=== PATIENT | female | born 1970 | race Caucasian/White ===

== ENCOUNTER → 2018-01-03 | Outpatient (CLI) | payer BC ==
--- NOTE | 2018-01-04 11:28 | RADIOLOGY IMAGING REPORT ---
FACILITY: [facility] - [place] PATIENT NAME: PATTI TO : [id number] MR: [id number] V: [id number] EXAM DATE: [id number] ORDERING PHYSICIAN: MONIKA ECHEVARRIA TECHNOLOGIST: Eneida Herndon PROCEDURE:BILATERAL DIGITAL SCREENING MAMMOGRAM WITH CAD ASSISTED INTERPRETATION & 3D TOMOSYNTHESIS COMPARISON:None. This is the patient's baseline mammogram. INDICATIONS:SCREENING FINDINGS: Moderately dense fibroglandular tissue is seen throughout the breasts. In the upper outer quadrant of the Left breast there is a nodular area for which Left breast Ultrasound is recommended. Just inferior to midline in the central Left breast on the Left MLO view there is an additional focal nodule not well seen on the Left CC view. Spot compression view of this nodule recommended. DIAGNOSTIC CATEGORY 0--INCOMPLETE: NEED ADDITIONAL IMAGING EVALUATION. RECOMMENDATIONS: ADDITIONAL MAMMOGRAPHIC VIEWS REQUIRED: LEFT BREAST. ULTRASOUND: LEFT BREAST. IMPRESSION: BIRADS 0: Incomplete. Left breast Ultrasound and additional view of the Left breast recommended as described. Dictated by: Nhi Elliott M.D. on 01/04/2018 at 9:12 Transcribed by: JUSTINO on 01/04/2018 at 9:51 Approved by: Nhi Elliott M.D. on 01/04/2018 at 11:26 [facility]
== END ==
LOC: US 00:36
PROVIDERS: ATTEND Nurse Practitioner Family
DX: Z12.31 Encounter for screening mammogram for malignant neoplasm of breast (principal); R92.8 Other abnormal and inconclusive findings on diagnostic imaging of breast
CPT/HCPCS: 77063; 77067

== ENCOUNTER → 2018-01-22 | Outpatient (CLI) | payer BC ==
--- NOTE | 2018-01-22 15:34 | RADIOLOGY IMAGING REPORT ---
FACILITY: [facility] PATIENT NAME: PATTI TO : [id number] MR: [id number] V: [id number] EXAM DATE: ORDERING PHYSICIAN: MONIKA ECHEVARRIA TECHNOLOGIST: Eneida Herndon PROCEDURE:LEFT DIGITAL DIAGNOSTIC MAMMOGRAM COMPARISON:None. INDICATIONS:FURTHER EVAL FINDINGS: Dictated on Ultrasound report for 01/22/2018. DIAGNOSTIC CATEGORY 4--SUSPICIOUS FOR MALIGNANCY. RECOMMENDATIONS: ULTRASOUND-GUIDED CORE BIOPSY: LEFT BREAST. IMPRESSION: BIRADS 4: Suspicious for malignancy. Dictated by: Devang Gillis M.D. on 01/22/2018 at 12:12 Transcribed by: JUSTINO on 01/22/2018 at 14:25 Approved by: Devang Gillis M.D. on 01/22/2018 at 15:32 [facility]
--- NOTE | 2018-01-22 15:39 | RADIOLOGY IMAGING REPORT ---
FACILITY: [facility] PATIENT NAME: PATTI TO : [id number] MR: [id number] V: [id number] EXAM DATE: ORDERING PHYSICIAN: MONIKA ECHEVARRIA TECHNOLOGIST: Mireille Salinas RDMS PROCEDURE:US LEFT BREAST and Left Diagnostic Mammogram COMPARISON:None. INDICATIONS:FURTHER EVAL TECHNIQUE: LEFT XCCL SPOT COMPRESSION 3D, LEFT FULL ML 3D, LEFT CC SPOT COMPRESSION 3D, LEFT SPOT COMPRESSION MLO 3D MAMMOGRAMS WERE PREFORMED. FINDINGS: Diagnostic Left Mammogram: The breast tissue is heterogeneously dense. In the Left breast 1 o'clock position 10cm from the nipple, there is persistent 7mm nodule which may represent a lymph node and is immediately adjacent to a vessel. Alfonso 6mm nodule in the Left breast 4 o'clock position, 4cm from the nipple is also noted. Left Breast Ultrasound: Left breast Ultrasound was preformed from the 12-6 o'clock position. In the Left breast 4 o'clock position, 7cm from the nipple, there is a 6 x 5 x 4mm irregular hypoechoic mass concerning for malignancy and warrants Ultrasound guided core biopsy. Immediately inferior and medial is a 7 x 5 x 9mm lobulated lymph node with a slightly thickened cortex but a normal fatty hilum. In the 1 o'clock position, 8cm from the nipple, there is a lobulated hypoechoic nodule measuring 10 x 8 x 4mm which corresponds to the mammographic finding and is potentially a metastatic lymph node and warrants Ultrasound guided core biopsy. In the Left breast 4 o'clock position, 1cm from the nipple there is a 5 x 3 x 7mm lymph node with normal fatty hilum. DIAGNOSTIC CATEGORY 4--SUSPICIOUS FOR MALIGNANCY. RECOMMENDATIONS: ULTRASOUND-GUIDED CORE BIOPSY: LEFT BREAST. IMPRESSION: BIRADS 4: Suspicious for malignancy. 1. Recommend Ultrasound guided core biopsy of the 6mm irregular hypoechoic nodule in the Left breast 4 o'clock position, 7cm from the nipple. 2. I would also suggest Ultrasound guided core biopsy of the lobulated hypoechoic nodule in the Left breast 1 o'clock position, 8cm from the nipple which could represent malignancy verses a metastatic lymph node. 3. If either lesions return malignancy, the patient would likely benefit from an MRI to evaluated for extent of disease. Dictated by: Devang Gillis M.D. on 01/22/2018 at 12:11 Transcribed by: JUSTINO on 01/22/2018 at 14:51 Approved by: Devang Gillis M.D. on 01/22/2018 at 15:38 [facility]
== END ==
LOC: MAMO 00:59
PROVIDERS: ATTEND Nurse Practitioner Family
DX: N63.23 Unspecified lump in the left breast, lower outer quadrant (principal); N63.21 Unspecified lump in the left breast, upper outer quadrant; R92.2 Inconclusive mammogram
CPT/HCPCS: 77061; 77065

== ENCOUNTER 2018-01-28 15:53 | Outpatient (RCR) | payer BC ==
[2018-01-29 09:44] LABS: INR 1.02
--- NOTE | 2018-01-30 13:34 | RADIOLOGY IMAGING REPORT ---
FACILITY: [facility] [place] PATIENT NAME: PATTI TO : [id number] MR: [id number] V: [id number] EXAM DATE: ORDERING PHYSICIAN: MONIKA ECHEVARRIA TECHNOLOGIST: Lorna Vallejo RDMS(ABD,OBGYN,BR),RVT PROCEDURE: BIOPSY LEFT BREAST COMPARISON: Prior Left breast Ultrasound 01/22/18 and the prior diagnostic Left breast mammogram 01/22/18. INDICATIONS: 2 MASSES IN THE LEFT BREAST FINDINGS: The informed consent was obtained. The patient's Left breast was prepped and draped in the usual sterile fashion. Attention was first directed towards the well circumscribed ovoid 6.5mm nodule in the 1 o'clock position of the Left breast. Local anesthesia was accomplished with 1% lidocaine. 3 16 Gauge core biopsies were obtained through this nodule. Samples were placed in formalin shown to the patient and sent to the laboratory for evaluation. A biopsy clip was placed in the biopsy site. Attention was then directed towards the 4 o'clock nodule. 3 12 Gauge core biopsies were obtained through this nodule under sonographic guidance. The samples were placed in formalin shown to the patient and sent to the laboratory for evaluation. An additional biopsy clip was placed in the biopsy site. The procedure was accomplished without apparent complication. IMPRESSION: 1. Successful sonographically guided biopsy of 2 nodules in the Left breast 1 in the 1 o'clock position and 1 in the 4 o'clock position pathology results are pending. Dictated by: Nhi Elliott M.D. on 01/29/2018 at 16:55 Transcribed by: JUSTINO on 01/30/2018 at 10:34 Approved by: Nhi Elliott M.D. on 01/30/2018 at 13:33 [facility]
--- NOTE | 2018-01-30 13:34 | RADIOLOGY IMAGING REPORT ---
FACILITY: [facility] PATIENT NAME: PATTI TO : [id number] MR: [id number] V: [id number] EXAM DATE: ORDERING PHYSICIAN: MONIKA ECHEVARRIA TECHNOLOGIST: Eneida Herndon PROCEDURE:LEFT DIGITAL DIAGNOSTIC MAMMOGRAM COMPARISON:Prior Left mammogram of 01/22/18. INDICATIONS:POST ULTRASOUND GUIDED LEFT BIOPSY FOR CLIP LOCALIZATION. FINDINGS: There is a biopsy clip in the upper outer quadrant of the Left breast in the location of the previously described nodule. There is an additional biopsy clip in the approximate 4 o'clock position of the Left breast this appears more posterior than the ovoid nodule identified on the recent mammograms in the 4 o'clock position. There was however a well circumscribed fatty replaced small lymph node in the 4 o'clock position of the Left breast 1cm from the nipple which likely accounts for the mammographic findings. IMPRESSION: 2 biopsy clips are seen in the Left breast 1 in the 1 o'clock position and 1 in the 4 o'clock position which corresponds to today's Ultrasound guided Left breast biopsy. Pathology results are pending. Dictated by: Nhi Elliott M.D. on 01/29/2018 at 16:59 Transcribed by: JUSTINO on 01/30/2018 at 10:42 Approved by: Nhi Elliott M.D. on 01/30/2018 at 13:33 [facility]
== END 2018-01-29 18:00 | disposition home or self-care (01) ==
LOC: MAMO 15:53 → EDSTATUS 01-29 15:53 → MAMO 01-29 18:00
PROVIDERS: ATTEND Nurse Practitioner Family
DX: N63.20 Unspecified lump in the left breast, unspecified quadrant (principal)
CPT/HCPCS: 19083; 36415; 77061; 77065; 82040; 82247; 82310; 82374; 82435; 82565; 82947; 84075; 84132; 84155; 84295; 84450; 84460; 84520; 85610; 88305; 88344

== ENCOUNTER 2018-02-14 02:45 | Day surgery (SDC) | payer BC ==
[2018-02-14] VITALS (7 sets, daily range): BP systolic 112–140; BP diastolic 86–105
[~2018-02-14] VITALS: Ht 165.1 cm; Wt 65.3 kg
[~2018-02-14 02:45] MED LIST: ASP300S PR; CHOL200021 PO; FERR325T24 PO; IBUP-136 PO; LIDOCAINE/PRILOCAINE 5 GM TUBE TP ONE; MULT1TAB64 PO
[2018-02-14] MEDS ORDERED: LIDOCAINE/PRILOCAINE 5 GM TUBE TP ONE (06:10)
[2018-02-14] MEDS ORDERED: ceFAZolin(*) 2GM/D5W 50ML 50 ML IVPB ONE (09:55)
[2018-02-14] MEDS ORDERED: FAMOTIDINE 20 MG TAB PO ONE (09:55)
[2018-02-14] MEDS ORDERED: NORMOSOL R SOLN(*) 1000 ML BAG 1,000 ML IV PRN (09:55)
[2018-02-14] MEDS ORDERED: MIDAZOLAM 2 MG/2 ML VIAL IVP PRN (09:55)
[2018-02-14] MEDS ORDERED: LIDOCAINE/SOD BICARB 8.4% SYR ID ONE (09:55)
[2018-02-14] MEDS ORDERED: ISOSULFAN BLUE 1% SLN 50MG/5ML ONE (09:57)
[2018-02-14] MEDS ORDERED: ROPIVACAINE 0.5% 20 ML VIAL ONE (09:57)
[2018-02-14] MEDS ORDERED: ACETAMINOPHEN(*)1000 MG/100 ML 100 ML IVPB ONE (10:45)
[2018-02-14] MEDS ORDERED: fentaNYL CITR 100 MCG/2 ML AMP ONE (11:38)
[2018-02-14] MEDS ORDERED: DEXAMETHASONE SOD PHOS 10MG/ML ONE (11:39)
[2018-02-14] MEDS ORDERED: PROPOFOL EMUL(*) 10MG/ML 20 ML 20 ML ONE (11:39)
[2018-02-14] MEDS ORDERED: ONDANSETRON 4 MG/2 ML VIAL ONE (11:39)
[2018-02-14] MEDS ORDERED: LIDOCAINE MPF 1% 5 ML VIAL ONE (11:39)
[2018-02-14] MEDS ORDERED: KETAMINE HCL-NS 50 MG/5 ML SYR ONE (11:40)
[2018-02-14] MEDS ORDERED: GLYCOPYRROLATE 0.2MG/ML 1 ML INJ ONE (13:32)
[2018-02-14] MEDS ORDERED: OXYC-854 PO (15:17)
[2018-02-14] MEDS ORDERED: DOCU-416 PO (15:17)
--- NOTE | 2018-02-14 15:24 | Short(Outpt) Discharge Summary ---
Discharge Summary Reason for Hosp/Final Diag: (1) Breast cancer, left breast Status: Chronic Hospital Course & Plan: Left breast cancer wire guided excision with left axillary sentinal lymph node excision and wire guided excision of suspicious lesion in left breast upper outer quadrant all completed without problems. Departure Discharge to: Home, Self Care Discharge Instructions Home Meds Active Scripts Docusate Sodium (COLACE) 100 Mg Capsule, 1 CAP PO BID, #30 CAP 0 Refills TAKE WITH A FULL GLASS OF WATER Prov:KEVIN DOBSON MD 02/14/18 Oxycodone Hcl/Acet 5/325 Mg (ENDOCET 5-325 TABLET) 1 Each Tablet, 1 TAB PO Q4H PRN for PAIN, #30 TAB 0 Refills Prov:KEVIN DOBSON MD 02/14/18 Reported Medications Ferrous Sulfate (IRON) 325 Mg Tablet, 325 MG PO 02/08/18 Multivitamin (MULTI VITAMIN DAILY) 1 Each Tablet, 1 EACH PO 02/08/18 Cholecalciferol (Vitamin D3) (VITAMIN D) 2,000 Unit Capsule, 2000 UNIT PO 1-2XD, CAPSULE 02/08/18 Discontinued Reported Medications Aspirin (ASPIRIN) 300 Mg Supp, 300 MG SC PRN, SUPP 02/08/18 Ibuprofen (IBUPROFEN) 200 Mg Capsule, 2 CAP PO Q6H, CAPSULE 02/08/18 Follow up Referrals: General Surgery - 02/26/18 @ Surgery, General with KEVIN DOBSON MD You have a follow up appointment scheduled with Dr. Dobson on 02/26/18, at 4:30pm. Diet: Regular Activity: As Tolerated Special Instructions: You may remove the white surgical dressings on 02/16/18, then you can shower. After showering, leave the incisions open to air but leave the steristrips in place until they fall off on their own. Do not immerse the incisions for 2 weeks. Problem Qualifiers (1) Breast cancer, left breast: Breast location: lower outer quadrant of breast Estrogen receptor status: positive Patient sex: female Qualified Codes: C50.512 - Malignant neoplasm of lower-outer quadrant of left female breast; Z17.0 - Estrogen receptor positive status [ER+] KEVIN DOBSON MD Feb 14, 2018 15:24
--- NOTE | 2018-02-14 15:35 | Post Operative Progress Note ---
Post Operative Progress Note Date: Feb 14, 2018 Time: 15:25 Surgeon: Yara Dictation number: [id number] Anesthesia: LMA by Dr. Hernandez Pre-Op Diagnosis: Left breast cancer, LOQ Left breast lesion, UOQ Post-Op Diagnosis: MAKAYLA Findings: 3 SLN negative for cancer on frozen section Both lesions in specimens on mamogram Procedure(s): Left breast cancer wide excision, wire guided Left breast lesion wire guided excision Left axillary SLN excision x3 Specimen Removed:(May be N/A): 1) SLN #1 2) SLN #2 3) SLN #3 4) Left breast lesion at 1:00 5) Left breast cancer at 4:00 6) Inferomedial margin 7) Superomedial margin 8) Inferior margin Complications: None Fluids: See anesthesia record Estimated Blood Loss: Minimal Date OP Note Dictated: Feb 14, 2018 Time OP Note Dictated: 15:28 KEVIN DOBSON MD Feb 14, 2018 15:35
--- NOTE | 2018-02-14 16:24 | OPERATIVE REPORT 1 ---
EVENT DATE: February 14, 2018 SURGEON: Nader Livingston MD ANESTHESIOLOGIST: Jose Martin Hernandez MD ANESTHESIA: LMA PREOPERATIVE DIAGNOSIS 1. Left breast cancer, lower outer quadrant. 2. Left breast lesion, upper outer quadrant. POSTOPERATIVE DIAGNOSIS 1. Left breast cancer, lower outer quadrant. 2. Left breast lesion, upper outer quadrant. PROCEDURE PERFORMED 1. Left breast cancer wire guided wide excision at 4 o'clock. 2. Left breast lesion wire guided excision at 1 o'clock. 3. Left axillary sentinel lymph node excision times 3. COMPLICATIONS None. CONDITION Stable. ESTIMATED BLOOD LOSS: Minimal. SPECIMENS 1. [place] lymph node #1. 2. [place] lymph node #2. 3. [place] lymph node #3. 4. Left breast lesion at 1 o'clock. 5. Left breast cancer at 4 o'clock. The left breast cancer was marked with a long suture laterally and a short suture superiorly and each of the margins were marked with a short silk suture on the tumor side of the margin. 6. Inferomedial margin. 7. Superomedial margin. 8. Inferior margin. FINDINGS The frozen section analysis of the three sentinel lymph nodes was negative for cancer. The specimen mammograms revealed biopsy clips in specimens in the tissue that I provided, although the breast cancer was off to one side and so this prompted me to remove more tissue around where the cancer had been. INDICATIONS This is a 47-year-old female who was recently found to have a left lower outer quadrant breast cancer and concurrently has a lesion in the upper outer quadrant. Both of these were biopsied which revealed the cancer in the lower outer quadrant, but the upper outer quadrant lesion looked like an inframammary lymph node and was benign on biopsy, although the radiologist was still concerned that it was suspicious enough that she recommended that it be removed as well. I discussed all of the options of breast cancer surgical options with the patient and she ultimately elected to proceed with breast conservation therapy including excision of the lower outer quadrant breast cancer as well as the upper outer quadrant breast lesion and sentinel lymph node biopsy and possible completion in axillary dissection if cancer was found on frozen sections. DESCRIPTION OF PROCEDURE The patient was brought to the operating room and placed supine on the operating table. LMA anesthesia was administered and the patient's left arm and breast were prepped and draped in sterile fashion. A timeout was completed, and I used a gamma probe to identify the most gamma output in the axilla and made a huan on the skin, anesthetized the skin and then made an incision right where I would have made the incision if I was going to a total axillary dissection, but just a smaller incision. I dissected through the dermis and subcutaneous fat, entered the clavipectoral fascia and used the gamma probe as I continued my dissection and ultimately removed three sentinel lymph nodes all with gamma output. After this was done there was no further gamma output from the axilla. I packed the axilla with moist gauze and then proceeded with removing the upper outer quadrant lesion. I had reviewed the preop imaging and the palpated the breast to see how the wire moves and then made a huan on the skin over where the lesion was to be, and anesthetized the skin with 0.5% Ropivacaine plain and then made an incision in the skin. I dissected through the dermis and subcutaneous fat, dissected over to the wire, pulled the wire into the wound and then removed a cylinder of tissue around the wire and then this was placed on a grid and passed off the field. I then turned my attention to the lower outer quadrant cancer and wire and again I reviewed the preoperative wire placement images and then made a circumareolar incision after anesthetizing the skin, dissected through the dermis and subcutaneous fat. I then dissected over to the wire, pulled the wire into the wound, and then removed a cylinder of tissue all the way down through the end of the wire. I placed this on a grid and then personally walked these over to radiology and took mammogram images of them. Both of them revealed the lesions in the specimen with the biopsy clips included. The lower outer quadrant breast cancer appeared close to 1 size, so when I returned to the operating room I removed three more specimens sent for permanent, the inferomedial margin, superomedial margin, and inferior margin. This dissection went all the way down to the muscle fascia and so there was not anything more that I could take out of the deep margin but felt that based on where the wire had been and localized the cancer, that the three margins I took would minimize the chance of positive margins. After this was completed, I irrigated and dried all three of these wounds and closed the subcutaneous pockets with running 3-0 Vicryl sutures and then closed the skin with interrupted 3-0 Vicryl deep dermal sutures and 4-0 Monocryl running subcuticular sutures. The skin was cleaned, dried and Steri-Strips were applied on all three incisions, followed by sterile, surgical dressings. The patient was awakened, LMA removed, and she was transported to the recovery room in stable condition having tolerated the procedures all without any apparent problems. Also of note, during surgery I did get word back on the three lymph nodes that were sent for frozen that there was no cancer within the lymph nodes, and so no further axillary dissection was completed. CHANTELL
--- NOTE | 2018-02-14 18:00 | RADIOLOGY IMAGING REPORT ---
FACILITY: [facility] [place] PATIENT NAME: Talya Gillette : 1970 MR: [id number] V: [id number] EXAM DATE: ORDERING PHYSICIAN: KEVIN DOBSON TECHNOLOGIST: [place] [facility] [place]alya Gil[place] : 1970 Visit/Account:[id number] Date of Sevice: 02/14/2018 Exam type: SENTINAL NODE STUDY History: breast cancer Comparison: None. Findings: The patient was injected with 480 uCi of technetium 99m lymphocseek and four separate subcutaneous in jections in the left periareolar region of the breast. Gamma camera images were obtained demonstrati ng at least one left axillary lymph node. There may be an additional tiny adjacent left axillary lym ph node present as well IMPRESSION: 1. Left axillary sentinel lymph nodes present Report Dictated By: Nhi Elliott MD at 02/14/2018 5:54 PM Report E-Signed By: Nhi Elliott MD at 02/14/2018 5:55 PM WSN:[id number]
--- NOTE | 2018-02-14 18:01 | RADIOLOGY IMAGING REPORT ---
[facility] PATIENT NAME: Talya Gillette : 1970 MR: [id number] V: [id number] EXAM DATE: ORDERING PHYSICIAN: KEVIN DOBSON TECHNOLOGIST: Location: [facility] Patient: Talya Gillette : 1970 Visit/Account:[id number] Date of Sevice: 02/14/2018 Exam type: BREAST LOCALIZATION LEFT History: breast cancer Comparison: Left breast ultrasound of January 22, 2018 and ultrasound-guided left breast biopsy [facility]. Findings: Informed consent was obtained. Patient's left breast prepped and draped usual sterile fashion. Loca l anesthesia was accomplished with 1% lidocaine. Under sonographic guidance a needle hook wire, this was advanced percutaneously through the small fatty replaced lymph node in the 1:00 position of the left breast. The hookwire was deployed and the needle was removed. A needle hook wire, combination was also advanced percutaneously through the irregular mass in the 4:00 position of the left breast u tilizing sonographic guidance. The hookwire was deployed and needle was removed. The patient was th en sent to the operating room for surgical excision. IMPRESSION: 1. Successful ultrasound-guided needle wire localization of the 1:00 intramammary lymph node left br east in the 4:00 irregular mass left breast Report Dictated By: Nhi Elliott MD at 02/14/2018 5:56 PM Report E-Signed By: Nhi Elliott MD at 02/14/2018 5:58 PM WSN:[email or web address]
--- NOTE | 2018-02-15 13:13 | RADIOLOGY IMAGING REPORT ---
[place] [facility] [place]TI TO : [id number] MR: [id number] V: [id number] EXAM DATE: [id number] ORDERING PHYSICIAN: KEVIN DOBSON TECHNOLOGIST: Cady Youngblood PROCEDURE: BREAST SPECIMEN COMPARISON: None. INDICATIONS: Breast Cancer FINDINGS: 2 surgical specimens were submitted for radiographic imaging. 1 image with the round micro clip is located within the ovoid hypoechoic nodule which sonographically appeared to represent an intramammary lymph node. A hook wire is located next to the nodule. The second sample demonstrates the hook wire within the sample. Adjacent to the hook wire is the biopsy clip from previous Ultrasound guided breast biopsy. There is a small amount of surrounding tissue along one edge of the surgical specimen which appears to contain the clip. This was in the location of previous biopsied intraductal carcinoma. CONCLUSION: As above. Dictated by: Nhi Elliott M.D. on 02/14/2018 at 17:07 Transcribed by: JUSTINO on 02/15/2018 at 10:48 Approved by: Nhi Elliott M.D. on 02/15/2018 at 13:12 [facility]
== END 2018-02-14 16:15 | disposition home or self-care (01) ==
LOC: OR 02:45
PROVIDERS: ATTEND Surgery
DX: C50.512 Malignant neoplasm of lower-outer quadrant of left female breast (principal); D24.2 Benign neoplasm of left breast; Z17.0 Estrogen receptor positive status [ER+]
CPT/HCPCS: 19125; 19126; 19285; 38525; 78195; 81025; 88305; 88331; 88342; 88344; A9520; J0131; J1100; J2001; J2405; J2704; J2795; J3010; J3490; Q9968; J0690

== ENCOUNTER 2018-03-21 15:00 | Outpatient (RCR) | payer BC ==
[2018-03-01 16:04] VITALS: BP 128/91
--- NOTE | 2018-03-02 17:38 | EL-TARABILY ONCOLOGY NOTE ---
EVENT DATE: March 01, 2018 REFERRING PHYSICIAN Karla Burns, SWINE EXTENSION FIELD SPECIALIST-BC, ONC REASON FOR CONSULTATION Evaluation and management of left breast cancer. ONCOLOGY HISTORY Patient is a 47-year-old premenopausal woman who was diagnosed with left breast cancer after an abnormal screening mammogram which showed two suspicious lesions in the left breast, one at 1 o'clock, and the other one was at 4 o'clock. Both were biopsied on the January. The lesion at 1 o'clock revealed to be an intramammary lymph node, while the lesion at 4 o'clock was an infiltrating ductal carcinoma, ER/ME positive, HER2/morris negative (1+ by immunohistochemistry), and the Ki-67 was high at 33.8%, histologic grade 2/3. Patient underwent after that ultrasonongraphic-guided wire localization lumpectomy and sentinel lymph node bss done on February 14, 2018, and the pathology came back positive for 1.1 cm invasive ductal carcinoma, grade 2/3 with negative margins, and negative lymphovascular invasion. Three sentinel lymph nodes were negative for metastasis, so the tumor was staged at a stage I (pT1c pN0 cM0). Oncotype DX testing requested, and result is pending. PAST MEDICAL HISTORY Significant only for anemia. PAST SURGICAL HISTORY 1. Wire localization lumpectomy, ultrasonographic guided, done on the January. 2. Left breast biopsy on the January. 3. D and C a long time ago. FAMILY HISTORY Paternal grandmother had breast cancer. Paternal uncle had bone cancer. Paternal aunt had lung cancer. SOCIAL HISTORY The patient is with two children. She is working for the school district. She has about about two to five cigarettes per day for the last 15 years. Denies any abuse of alcohol or illicit drugs. CURRENT MEDICATIONS 1. Ferrous sulfate 325 mg daily. 2. Multivitamin. 3. Vitamin D3 2000 units daily. ALLERGIES No known drug allergies. REVIEW OF SYSTEMS CONSTITUTIONAL: No appetite or weight change. No fever, chills, or sweating. No recent infection. HEENT: Ears: No tinnitus or hearing problem. Nose: No nasal discharge or epistaxis. Throat: No sore throat or mouth ulcers. Eyes: No diplopia or visual changes. RESPIRATORY: She has exertional shortness of breath sometimes. No cough, expectoration, or hemoptysis. CARDIOVASCULAR: No chest pain, orthopnea, or paroxysmal nocturnal dyspnea (PND). No edema. No palpitations. GASTROINTESTINAL: No nausea or vomiting. No diarrhea or constipation. No change in bowel movements. No heartburn or swallowing difficulties. No abdominal pain. No jaundice. No hematemesis, melena, or rectal bleeding. GENITOURINARY: No hematuria or dysuria. MUSCULOSKELETAL: No pain in the muscles, joints, or bones. NEUROLOGIC: No tingling or numbness in the hands or feet. No headaches or convulsions. HEMATOLOGIC/LYMPHATIC: No bleeding or easy bruising. She is a little bit weak, tired, and fatigued. No enlarged lymph nodes. SKIN: No skin rash or lumps. PSYCHIATRIC: No anxiety or depression. PHYSICAL EXAMINATION GENERAL: Looks stable. Well developed, well nourished, and in no acute distress. VITAL SIGNS: Blood pressure 128/91, pulse 75 per minute, respirations 16 per minute, temperature 98.2, pulse ox 95% on room air. HEENT: Head: Atraumatic. No sinus tenderness to palpation. Eyes: No icterus or conjunctivitis. Mouth and Throat: No oral thrush or mucositis. NECK: Supple. No cervical or supraclavicular lymphadenopathy. LUNGS: Clear to auscultation and percussion bilaterally. HEART: Regular rate and rhythm. No gallops, murmurs, clicks, or rubs. ABDOMEN: Soft and lax. No tenderness. No hepatosplenomegaly. No masses. EXTREMITIES: No cyanosis, clubbing, or edema. LYMPHATICS: No peripheral lymphadenopathy. NEUROLOGIC: Conscious, alert, and oriented times three. No focal motor or sensory deficits. PSYCHIATRIC: Mood and affect appear normal. SKIN: No skin rash, bruise, or purpuric eruption. ASSESSMENT Stage I (pT1c pN0 cM0) left breast invasive ductal carcinoma, status post ultrasonographic-guided wire localization lumpectomy done on the February, and the pathology came back positive for 1.1 cm invasive ductal carcinoma grade 2/3 with negative margins and negative lymphovascular invasion. Three sentinel lymph nodes were negative for metastasis. ER/ME positive, HER2/morris negative (1+ by immunohistochemistry), and Ki-67 was high at 33.8%. Oncotype DX testing was requested, and results are still pending, which is really very important to decide about adjuvant chemotherapy. Given that despite the fact that she was sentinel lymph node negative, the Ki-67 was high, meaning that the tumor could be aggressive. If the Oncotype DX testing shows high recurrence score, then I am planning to treat her with chemotherapy, and I am planning to treat her with TC regimen with Taxotere and cyclophosphamide for four cycles. As her tumor is ER/ME positive, patient is a candidate for adjuvant hormonal therapy, and because she is premenopausal, patient will be a candidate for tamoxifen. Patient had lumpectomy, and she is a candidate for adjuvant radiation therapy. She has an appointment with radiation oncologist next week. I am planning to see her in two weeks after we get the result of the Oncotype DX testing, and I will check her CBC, chemistry panel, and vitamin D level prior to her visit. Side effects expected from hormonal therapy are explained to the patient. Patient is agreeable with the plan of management. I met with the patient and her today, and I answered all their questions to their satisfaction. PLAN 1. I await the results of the Oncotype DX testing. 2. Consider adjuvant chemotherapy if the Oncotype DX testing shows high recurrence score. 3. Patient is a candidate for adjuvant hormonal therapy with tamoxifen after she would finish her radiation therapy. 4. Patient is a candidate for adjuvant radiation therapy given that she had lumpectomy. 5. Patient to return in two weeks with CBC, chem panel, and vitamin D level. 6. Patient to contact us for any new concerns or complaints. [facility]
[2018-03-13 10:27] LABS: PLATELET COUNT, AUTOMATED 288 K/uL (150-450)
[2018-03-13 10:37] VITALS: BP 132/79
[~2018-03-21] VITALS: Ht 162.6 cm; Wt 66.4 kg
[~2018-03-21 15:00] MED LIST changes: +DOCU-416 PO; -LIDOCAINE/PRILOCAINE 5 GM TUBE TP ONE; +OXYC-854 PO
[2018-03-21 15:06] VITALS: BP 136/93
--- NOTE | 2018-03-22 03:37 | EL-TARABILY ONCOLOGY NOTE ---
EVENT DATE: March 21, 2018 DIAGNOSES Stage I (pT1C pN0 cM0) left breast invasive ductal carcinoma. CHIEF COMPLAINT Patient is here today for followup of her left breast cancer. ONCOLOGY HISTORY Patient is a 47-year-old premenopausal woman who was diagnosed with left breast cancer after an abnormal screening mammogram which showed two suspicious lesions in the left breast, one at 1 o'clock, and the other one was at 4 o'clock. Both were biopsied on the January. The lesion at 1 o'clock revealed to be an intramammary lymph node, while the lesion at 4 o'clock was an infiltrating ductal carcinoma, ER/KS positive, HER2/morris negative (1+ by immunohistochemistry), and the Ki-67 was high at 33.8%, histologic grade 2/3. Patient underwent after that ultrasonographic-guided wire localization lumpectomy and sentinel lymph node bss done on February 14, 2018, and the pathology came back positive for 1.1 cm invasive ductal carcinoma, grade 2/3 with negative margins, and negative lymphovascular invasion. Three sentinel lymph nodes were negative for metastasis, so the tumor was staged at a stage I (pT1c pN0 cM0). Oncotype DX testing showed recurrence score at 13%, with nine- year risk of systemic recurrence only 4%, with benefit of chemotherapy only 1.6%. There is no indication for adjuvant chemotherapy. HISTORY OF PRESENT ILLNESS Patient is here today for followup of her left breast cancer. She is doing very well currently and denies any complaint. PAST MEDICAL HISTORY Significant only for anemia. PAST SURGICAL HISTORY 1. Wire localization lumpectomy, ultrasonographic guided, done on the January. 2. Left breast biopsy on the January. 3. D and C a long time ago. FAMILY HISTORY Paternal grandmother had breast cancer. Paternal uncle had bone cancer. Paternal aunt had lung cancer. SOCIAL HISTORY The patient is with two children. She is working for the school district. She has about about two to five cigarettes per day for the last 15 years. Denies any abuse of alcohol or illicit drugs. CURRENT MEDICATIONS 1. Ferrous sulfate 325 mg daily. 2. Multivitamin. 3. Vitamin D3 2000 units daily. ALLERGIES No known drug allergies. REVIEW OF SYSTEMS CONSTITUTIONAL: No appetite or weight change. No fever, chills or sweating. No recent infection. HEENT: Ears: No tinnitus or hearing problem. Nose: No nasal discharge or epistaxis. Throat: No sore throat or mouth ulcers. Eyes: No diplopia or visual changes. RESPIRATORY: No shortness of breath. No cough, expectoration or hemoptysis. CARDIOVASCULAR: No chest pain, orthopnea, or paroxysmal nocturnal dyspnea (PND). No edema. No palpitations. GASTROINTESTINAL: No nausea or vomiting. No diarrhea or constipation. No change in bowel movements. No heartburn or swallowing difficulties. No abdominal pain. No jaundice. No hematemesis, melena or rectal bleeding. GENITOURINARY: No hematuria or dysuria. MUSCULOSKELETAL: No pain in the muscles, joints or bones. NEUROLOGICAL: No tingling or numbness in the hands or feet. No headaches or convulsions. HEMATOLOGIC/LYMPHATIC: No bleeding or easy bruising. No weakness or fatigued. No enlarged lymph nodes. SKIN: No skin rash or lumps. PSYCHIATRIC: No anxiety or depression. PHYSICAL EXAMINATION GENERAL: Looks stable. Well-developed, well-nourished, and in no acute distress. VITAL SIGNS: Blood pressure 136/93, pulse 79 per minute, respirations 16 per minute, temperature 97.1, pulse oximetry 96% on room air. HEENT: Head: Atraumatic. No sinus tenderness to palpation. Eyes: No icterus or conjunctivitis. Mouth and throat: No oral thrush or mucositis. NECK: Supple. No cervical or supraclavicular lymphadenopathy. LUNGS: Clear to auscultation and percussion bilaterally. HEART: Regular rate and rhythm. No gallops, murmurs, clicks or rubs. ABDOMEN: Soft and lax. No tenderness. No hepatosplenomegaly. No masses. EXTREMITIES: No cyanosis, clubbing or edema. LYMPHATICS: No peripheral lymphadenopathy. NEUROLOGICAL: Conscious, alert and oriented times three. No focal motor or sensory deficits. PSYCHIATRIC: Mood and affect appear normal. SKIN: No skin rash, bruise or purpuric eruption. DIAGNOSTIC DATA CBC showed a white count of 4.7, hemoglobin 15.3, hematocrit 45.7, platelet 288,000. Chem panel totally normal except AST 37. Vitamin D level is 42. ASSESSMENT Stage I (pT1C pN0 cM0) left breast invasive ductal carcinoma, status post ultrasonographic-guided wire-localization lumpectomy done on 14 February 2018, and the pathology came back positive for 1.1 cm invasive ductal carcinoma, grade 2/3, with negative margins and negative lymphovascular invasion. Three sentinel lymph nodes were negative for metastasis. ER/KS positive, HER2/morris negative (1+ by immunohistochemistry) and Ki-67 was high at 33.8%. Oncotype DX testing showed low recurrence score of 13% with nine-year risk of systemic recurrence of only 4%, and the benefit of chemotherapy is only 1.6%, so there is no indication for adjuvant chemotherapy. Patient is going to see the radiation oncologist to start her adjuvant radiation therapy. I will see her after she finishes her radiation therapy, to start her adjuvant hormonal therapy with tamoxifen, as the patient is premenopausal. I am planning to check her CBC and chem panel when I see her after the end of her radiation therapy, to start tamoxifen at that time. PLAN 1. Continue followup. 2. Patient will go for adjuvant radiation therapy. 3. Patient to return after the end of radiation therapy with CBC and chem panel, to start adjuvant hormonal therapy with tamoxifen. 4. Patient to contact us for any new concerns or complaints. KARID
--- NOTE | 2018-04-03 08:15 | NUR ---
TYESHA visited with the pt and her , Madison, today at her scheduled appointment. The pt expressed some concern for the mounting medical bills that seem to be piling up. She feels that even though she has adequate insurance coverage, the co-pays she is having to pay are still overwhelming. TYESHA encouraged the pt to apply for the [facility] patient financial assistance program, as well as contact all of the other billers to find out if they also have assistance programs. TYESHA assisted the pt with applying for the [facility] funds to help with her co-pays. TYESHA will also assist the pt with applying for the [employer] co-pay program closer to when she is expected to start this treatment. The pt had two additional questions about billing. One was that she had a [facility] bill that did not seem to be billed to her insurance. The other was that she had to come in for an additional lab draw after the blood was "lost" after the first draw. This was an [facility] mistake and she believes she should not be billed for the additional draw. TYESHA will look into charges for her blood draws.
== END 2018-05-30 ==
LOC: ONC 15:00
PROVIDERS: ATTEND Internal Medicine Hematology
DX: C50.912 Malignant neoplasm of unspecified site of left female breast (principal); Z17.0 Estrogen receptor positive status [ER+]; F17.210 Nicotine dependence, cigarettes, uncomplicated; Z78.0 Asymptomatic menopausal state
CPT/HCPCS: 36415; 82040; 82247; 82306; 82310; 82374; 82435; 82565; 82947; 84075; 84132; 84155; 84295; 84450; 84460; 84520; 85025; 99202; 99212

== ENCOUNTER 2018-05-17 07:30 | Outpatient (RCR) | payer BC ==
--- NOTE | 2018-03-07 16:17 | PURVIANCE CONSULTATION ---
EVENT DATE: March 07, 2018 REFERRING PHYSICIAN Karla Burns, ANGELA DIAGNOSIS Left breast cancer. CHIEF COMPLAINT Discussion of breast radiotherapy. HISTORY OF PRESENT ILLNESS The patient is a 47-year-old premenopausal female diagnosed with a left breast cancer after an abnormal screening mammogram showed two suspicious lesions in the left breast, one at the 1 o'clock position and the other at the 4 o'clock position. Both lesions were biopsied on January 29, 2018. The 1 o'clock lesion revealed an intramammary lymph node, which was benign, while the 4 o'clock lesion revealed an infiltrating ductal carcinoma ER positive, 82.6% MN positive, 83.1% HER2/morris negative by FISH. Ki-67 elevated at 33.8%. The tumor was grade 2. The patient underwent a wire localized lumpectomy and sentinel lymph node biopsy on February 14, 2018. Pathology revealed a 1.1 cm invasive ductal carcinoma, grade 2, with negative margins. There was no lymphovascular invasion. Three sentinel lymph nodes were obtained, which were negative for metastasis. As such, the patient was staged a pT1c pN0 stage 1 breast cancer. Oncotype DX test is pending. The patient has met with Dr. Perez, who has discussed treatment options with the patient. On presentation today, the patient does report significant tenderness in her right breast in the right outer lower quadrant. This has been worsening over the last week. PAST MEDICAL HISTORY 1. Breast cancer, see above. 2. Anemia. PAST SURGICAL HISTORY 1. Lumpectomy with sentinel lymph node biopsy on February 14, 2018. 2. Dilatation and curettage. FAMILY HISTORY Paternal grandmother with breast cancer, paternal uncle had bone cancer, paternal aunt who had lung cancer. SOCIAL HISTORY The patient is with two children. She works in the school district. She has had about 2 to 5 cigarettes per day for the last 15 years. She denies any alcohol or drug use. CURRENT MEDICATIONS 1. Ferrous Sulfate 2. Multivitamin. 3. Vitamin D3. ALLERGIES No known drug allergies. PHYSICAL EXAMINATION VITAL SIGNS: Temperature 97.1, pulse 76, blood pressure 127/90, respiratory rate 16, O2 saturation 94% on room air. CONSTITUTIONAL AND GENERAL APPEARANCE: The patient is sitting comfortably in the chair in no acute distress. HEENT: Pupils are equal, round and reactive to light and accommodation. Extraocular movements are intact. There are no lesions of the oropharynx. NECK: Supple. Trachea is midline. LYMPHATIC SURVEY: No palpable supraclavicular or axillary lymphadenopathy bilaterally. BREAST: Intact periareolar lumpectomy incision in the left lower outer quadrant. The patient additionally has a separate incision in the left upper outer quadrant. Neither lesion has granulation tissue. The patient's axillary incision is well healed with a palpable seroma. On supine examination, the patient does have moderate edema and a palpable seroma in her left outer lower quadrant. Palpation of the seroma is moderately tender. There is no significant overlying skin erythema. The patient has no dominant breast masses bilaterally. RESPIRATORY: Lungs are clear to auscultation and percussion bilaterally. CARDIOVASCULAR: Regular rate and rhythm. Normal S1 and S2. No murmurs, rubs or gallops. ABDOMEN: Soft and nontender with active bowel sounds. No hepatosplenomegaly. EXTREMITIES: No edema, clubbing or cyanosis. NEUROLOGIC: The patient is alert and oriented x3. Gait is normal. PERFORMANCE STATUS: 90%. IMPRESSION The patient is a 47-year-old woman with an ER/MN positive, HER2/morris negative infiltrating ductal carcinoma, grade 2, measuring 1.1 cm in size. Node negative. Status post lumpectomy and sentinel lymph node biopsy. Lumpectomy margins were negative. Oncotype DX test is pending. PLAN The patient was apprised of the standard care for treatment for stage 1 breast cancer, which includes mastectomy versus lumpectomy followed by breast radiotherapy. The efficacy of breast conserving therapy with lumpectomy and breast radiotherapy achieving ipsilateral local tumor control in the high 90% range was discussed with the patient as well as the side effect profile of breast radiotherapy. We will await the results of the Oncotype DX test as well as her meeting with Dr. Perez next week to discuss systemic therapy before setting a day for radiotherapy. The patient overall is a candidate to proceed with breast radiotherapy. She will be scheduled to follow up with Dr. Bell on March 18, 2018. HCANTELL
--- NOTE | 2018-03-26 21:53 | ONCOLOGY FOLLOW UP NOTE ---
EVENT DATE: March 26, 2018 DIAGNOSIS Invasive ductal carcinoma of the left breast, tumor size 1.1 cm, which was strongly estrogen receptor and progesterone receptor positive, HER2/morris negative, status post lumpectomy and sentinel lymph node procedure. [place] lymph node negative for carcinoma. INTERVAL HISTORY Patient was initially seen in consultation by Dr. Merino in late February, and reference is made to his note. No treatment was initiated as we were awaiting the Oncotype DX testing which Dr. Monge had initiated. Patient has now met with Dr. Monge, and the plan is to proceed with external beam radiation therapy to the left breast. This will be followed by tamoxifen. Patient clinically is doing well. She is not having any significant breast pain. She does occasionally have shooting discomfort, which I told her we describe as "zingers." These are common. She has some fatigue, but that is multifactorial related to work and home life as well as the diagnosis. I asked her if she had any depression at this time, and she said, "No." She does have some insomnia at times, but does not feel that she needs any specific medication for this at this time. MEDICATIONS The patient is taking an iron tablet, vitamin D, and a multivitamin. PLAN The patient is here to review the radiation therapy treatment details, and signed consent was obtained for therapy as well. All questions were answered to her satisfaction. She will undergo targeting simulation on Sunday of this week and potentially start radiation next Sunday if the computer plan is done by that juncture. She will be treated to 45 Gy in 25 fractions with field reduction to the lower-outer quadrant for boost which will be delivered in two phases. Combined dose will be 60 Gy in 33 fractions total. MTDD
[2018-05-14 14:59] VITALS: BP 126/87
--- NOTE | 2018-05-16 10:40 | NUR ---
TYESHA rec'd confirmation that [employer] did make contact with the patient and they are requesting bills for them pay on. The pt left me her existing COUNT INCLUDES THE [facility] bills. TYESHA will email the bills to [employer].
--- NOTE | 2018-05-17 09:54 | NUR ---
TYESHA learned the pt's already paid off the existing balance at [facility]. They are waiting still for more bills to come in and will give statements when those are received. TYESHA notified [employer] of this information.
== END 2018-05-28 ==
LOC: RAON 07:30
PROVIDERS: ATTEND Radiology Radiation Oncology
DX: Z51.0 Encounter for antineoplastic radiation therapy (principal); C50.912 Malignant neoplasm of unspecified site of left female breast
CPT/HCPCS: 77280; 77290; 77295; 77300; 77334; 77336; 77412

== ENCOUNTER 2018-07-02 15:27 | Outpatient (RCR) | payer BC ==
--- NOTE | 2018-05-31 11:12 | NUR ---
TYESHA reached out to [facility] to find out how to apply for their financial assistance. They indicated the pt would have to complete their application and submit a copy of the [facility] financial assistance letter. TYESHA will assist the pt with completion of this application and fax in.
[2018-05-31 14:00] VITALS: BP 134/94
--- NOTE | 2018-05-31 21:25 | EL-[facility] ONCOLOGY NOTE ---
EVENT DATE: May 31, 2018 DIAGNOSIS Stage I (pT1C pN0 cM0) left breast invasive ductal carcinoma. CHIEF COMPLAINT Patient is here today for followup of her left breast cancer. ONCOLOGY HISTORY Patient is a 48-year-old premenopausal woman who was diagnosed with left breast cancer after an abnormal screening mammogram which showed two suspicious lesions in the left breast, one at 1 o'clock, and the other one was at 4 o'clock. Both were biopsied on the January. The lesion at 1 o'clock revealed to be an intramammary lymph node, while the lesion at 4 o'clock was an infiltrating ductal carcinoma, ER/PA positive, HER2/morris negative (1+ by immunohistochemistry), and the Ki-67 was high at 33.8%, histologic grade 2/3. Patient underwent after that ultrasonographic-guided wire localization lumpectomy and sentinel lymph node biopsy done on February 14, 2018, and the pathology came back positive for 1.1 cm invasive ductal carcinoma, grade 2/3, with negative margins and negative lymphovascular invasion. Three sentinel lymph nodes were negative for metastasis, so the tumor was staged at a stage I (pT1c pN0 cM0). Oncotype DX testing showed recurrence score at 13%, with nine- year risk of systemic recurrence only 4%, with benefit of chemotherapy only 1.6%. There is no indication for adjuvant chemotherapy. Patient finished her adjuvant radiation therapy on the May. Patient started treatment with tamoxifen 20 mg daily on the May. HISTORY OF PRESENT ILLNESS Patient is here today for followup of her left breast cancer. She is complaining of some atypical chest pain, stabbing in nature, which happened for two days and stopped after that. She had also muscle aches and easy bruising, and she is weak, tired, and fatigued. PAST MEDICAL HISTORY Significant only for anemia. PAST SURGICAL HISTORY 1. Wire localization lumpectomy, ultrasonographic guided, done on the January. 2. Left breast biopsy on the January. 3. D and C a long time ago. FAMILY HISTORY Paternal grandmother had breast cancer. Paternal uncle had bone cancer. Paternal aunt had lung cancer. SOCIAL HISTORY The patient is with two children. She is working for the school district. She has about about two to five cigarettes per day for the last 15 years. Denies any abuse of alcohol or illicit drugs. CURRENT MEDICATIONS 1. Ferrous sulfate 325 mg daily. 2. Multivitamin. 3. Vitamin D3 2000 units daily. ALLERGIES No known drug allergies. REVIEW OF SYSTEMS CONSTITUTIONAL: No appetite or weight change. No fever, chills, or sweating. No recent infection. HEENT: Ears: No tinnitus or hearing problem. Nose: No nasal discharge or epistaxis. Throat: No sore throat or mouth ulcers. Eyes: No diplopia or visual changes. RESPIRATORY: No shortness of breath. No cough, expectoration, or hemoptysis. CARDIOVASCULAR: She has atypical chest pain which resolved on its own. No orthopnea or paroxysmal nocturnal dyspnea (PND). No edema. No palpitations. GASTROINTESTINAL: No nausea or vomiting. No diarrhea or constipation. No change in bowel movements. No heartburn or swallowing difficulties. No abdominal pain. No jaundice. No hematemesis, melena, or rectal bleeding. GENITOURINARY: No hematuria or dysuria. MUSCULOSKELETAL: She has muscle aches. NEUROLOGICAL: No tingling or numbness in the hands or feet. No headaches or convulsions. HEMATOLOGIC/LYMPHATIC: No bleeding. She bruises easily, and she is weak, tired, and fatigued. No enlarged lymph nodes. SKIN: No skin rash or lumps. PSYCHIATRIC: No anxiety or depression. PHYSICAL EXAMINATION GENERAL: Looks stable. Well developed, well nourished, and in no acute distress. VITAL SIGNS: Blood pressure 134/94, pulse 84 per minute, respirations 16 per minute, temperature 97.1, pulse ox 95% on room air. HEENT: Head: Atraumatic. No sinus tenderness to palpation. Eyes: No icterus or conjunctivitis. Mouth and Throat: No oral thrush or mucositis. NECK: Supple. No cervical or supraclavicular lymphadenopathy. LUNGS: Clear to auscultation and percussion bilaterally. HEART: Regular rate and rhythm. No gallops, murmurs, clicks, or rubs. ABDOMEN: Soft and lax. No tenderness. No hepatosplenomegaly. No masses. EXTREMITIES: No cyanosis, clubbing, or edema. LYMPHATICS: No peripheral lymphadenopathy. NEUROLOGICAL: Conscious, alert, and oriented times three. No focal motor or sensory deficits. PSYCHIATRIC: Mood and affect appear normal. SKIN: No skin rash, bruise, or purpuric eruption. ASSESSMENT Stage I (pT1C pN0 cM0) left breast invasive ductal carcinoma, status post ultrasonographic-guided wire-localization lumpectomy done on the February, and the pathology came back positive for 1.1 cm invasive ductal carcinoma, grade 2/3, with negative margins and negative lymphovascular invasion. Three sentinel lymph nodes were negative for metastasis. ER/PA positive, HER2/morris negative (1+ by immunohistochemistry), and Ki-67 was high at 33.8%. Oncotype DX testing showed low recurrence score of 13% with nine-year risk of systemic recurrence of only 4%, and the benefit of chemotherapy is only 1.6%, so there is no indication for adjuvant chemotherapy. Patient completed her adjuvant radiation therapy on the May. I am planning to start adjuvant hormonal therapy with tamoxifen 20 mg daily for a total of 10 years. I spoke with her about the side effects which would include blood clotting, cancer of uterus, hot flashes, and the patient is aware of those side effects. I am planning to see her again in three months with CBC, chemistry panel, CA27.29. I am planning to check her chemistry panel every other week for two times to see if there will be any deterioration of the liver enzymes by the tamoxifen use. I explained that to the patient. She is agreeable with the plan of management. PLAN 1. Tamoxifen 20 mg daily. 2. CBC to be checked every other week times two. 3. Patient to return in three months with CBC, chem panel, CA27.29. 4. Patient to contact us for any new concerns or complaints. CHANTELL
[2018-06-17 15:42] VITALS: BP 124/82
--- NOTE | 2018-06-18 22:44 | ONCOLOGY FOLLOW UP NOTE ---
EVENT DATE: June 17, 2018 DIAGNOSIS Stage I (pT1C pN0 cM0) left breast invasive ductal carcinoma. CHIEF COMPLAINT Patient is here today for followup of her left breast cancer. She initiated tamoxifen on 05/31/18. ONCOLOGY HISTORY Patient is a 48-year-old premenopausal woman who was diagnosed with left breast cancer after an abnormal screening mammogram which showed two suspicious lesions in the left breast, one at 1 o'clock, and the other one was at 4 o'clock. Both were biopsied on the January. The lesion at 1 o'clock revealed to be an intramammary lymph node, while the lesion at 4 o'clock was an infiltrating ductal carcinoma, ER/ND positive, HER2/morris negative (1+ by immunohistochemistry), and the Ki-67 was high at 33.8%, histologic grade 2/3. Patient underwent after that ultrasonographic-guided wire localization lumpectomy and sentinel lymph node biopsy done on February 14, 2018, and the pathology came back positive for 1.1 cm invasive ductal carcinoma, grade 2/3, with negative margins and negative lymphovascular invasion. Three sentinel lymph nodes were negative for metastasis, so the tumor was staged at a stage I (pT1c pN0 cM0). Oncotype DX testing showed recurrence score at 13%, with nine- year risk of systemic recurrence only 4%, with benefit of chemotherapy only 1.6%. There is no indication for adjuvant chemotherapy. Patient finished her adjuvant radiation therapy on the May. Patient started treatment with tamoxifen 20 mg daily on the May. HISTORY OF PRESENT ILLNESS Patient is here today for followup of her left breast cancer. She denies any changes in her overall health other than some very noticeable vasomotor symptoms. She reports that this all began very soon after initiating tamoxifen and tells me that she never had any hot flash symptoms prior to tamoxifen. She remains on this and otherwise taking this well. She has not had any significant arthralgias. She has not had any mood changes. Of note, she was placed on venlafaxine approximately two months ago while undergoing radiotherapy for her depression. She tells me that she self-discontinued this about two weeks ago. She tells me that she began to notice excessive drowsiness, daytime lethargy and fatigue, which she believes was related to the venlafaxine. At the time she had read something about side effects related to venlafaxine. Since discontinuing this, her symptoms have resolved. She tells me that in lieu of the antidepressant, she started exercising, and this is helping. She is currently attending our oncology group exercise class here with our physical therapist, Diana. She has not had any significant pain in the breast. She believes the area is healing well. PAST MEDICAL HISTORY Significant only for anemia. PAST SURGICAL HISTORY 1. Wire localization lumpectomy, ultrasonographic guided, done on the January. 2. Left breast biopsy on the January. 3. D and C a long time ago. FAMILY HISTORY Paternal grandmother had breast cancer. Paternal uncle had bone cancer. Paternal aunt had lung cancer. SOCIAL HISTORY The patient is with two children. She is working for the school district. She has about about two to five cigarettes per day for the last 15 years. Denies any abuse of alcohol or illicit drugs. CURRENT MEDICATIONS 1. Ferrous sulfate 325 mg daily. 2. Multivitamin. 3. Vitamin D3 2000 units daily. ALLERGIES No known drug allergies. REVIEW OF SYSTEMS CONSTITUTIONAL: Patient denies any fevers, chills, or night sweats. No recent infections. She has been feeling well, and her energy level has been improving. HEENT: No vision changes. No tinnitus. No nasal drainage. No mouth sores. RESPIRATORY: No shortness of breath. No cough, sputum production, or hemoptysis. No pleuritic chest pain. CARDIOVASCULAR: She denies any chest pain. No palpitations, syncope, or presyncope. GASTROINTESTINAL: No abdominal pain, nausea, vomiting, constipation, diarrhea, bright red blood per rectum, or melena. Appetite has been stable. GENITOURINARY: No dysuria, hematuria, or genitourinary discharge. NEUROLOGICAL: She denies any headaches or seizure-like activity. No numbness or tingling. HEMATOLOGIC/LYMPHATIC: No free bleeding. She tends to bruise easily. DERM: No rash, lumps, or bumps. PSYCHIATRIC: She denies any worsening depression, severe depression, severe anxiety, suicidal or homicidal ideation. ENDOCRINE: Positive for vasomotor symptoms with hot flashes, which she reports began shortly after initiating tamoxifen. She will have approximately three episodes per day. Usually during the day she will feel extremely warm, "internally", and at night will have a hot flash and has to take the covers off, then back on. No other disturbances. Energy has improved with recent exercise. MUSCULOSKELETAL: She denies any focal areas of pain. PHYSICAL EXAMINATION VITAL SIGNS: Temperature 99.3, P 82, R 16, BP 124/84, oxygen saturation 95% room air. GENERAL: In general, this is a pleasant 48-year-old woman who appears well developed, well hydrated, and is in no acute distress. HEAD: Atraumatic. Normocephalic. EYES: Sclerae anicteric. ENT, MOUTH: No thrush or mucositis. No suspicious ulcerations. NECK: Supple. No lymphadenopathy. No JVD. LUNGS: Clear breath sounds to auscultation bilaterally. No wheezes, rales, or rhonchi. HEART: Regular rate and rhythm. No murmurs. ABDOMEN: Soft, nontender, nondistended. No organomegaly. Bowel sounds positive x4. BREASTS: There is some mild erythema and hyperpigmentation with dark-colored areas around the nipple of the left breast. Lumpectomy incision has healed well. Right breast is within normal limits with no palpable abnormalities, skin changes, or nipple discharge. EXTREMITIES: No edema. No clubbing or cyanosis. NEUROLOGIC: Patient is awake, alert, oriented x3. PSYCHIATRIC: Mood and affect are appropriate. DERM: No rash, bruises, or purpuric eruption. MUSCULOSKELETAL: Gait is steady. LABORATORY No CBC today. CMP today: LFTs improved. Sodium normal, 138, potassium 3.7, serum creatinine 0.90, total bilirubin less than 0.1, AST down to 29, improved and now normal compared to previous 37 on 03/13/18, ALT 24, alkaline phosphatase normal, 45, total protein 6.9, albumin normal, 4.1. CBC on 03/13/18: Normal. IMPRESSION AND PLAN Stage I (pT1C pN0 cM0) left breast invasive ductal carcinoma, status post ultrasonographic-guided wire-localization lumpectomy done on the February, and the pathology came back positive for 1.1 cm invasive ductal carcinoma, grade 2/3, with negative margins and negative lymphovascular invasion. Three sentinel lymph nodes were negative for metastasis. ER/ND positive, HER2/morris negative (1+ by immunohistochemistry), and Ki-67 was high at 33.8%. Oncotype DX testing showed low recurrence score of 13% with nine-year risk of systemic recurrence of only 4%, and the benefit of chemotherapy is only 1.6%, so there is no indication for adjuvant chemotherapy. Patient completed her adjuvant radiation therapy on the May. She has now been started on adjuvant hormonal therapy with tamoxifen 20 mg daily, which she will take for a total of 10 years. She is aware of this. She is aware of the possible side effects and risks. She did have some transaminitis at last visit, and we are spot checking these today to reevaluate after initiation of tamoxifen. Plan initially was for her to spot check a CMP every other week for two times to see if there was any deterioration of liver enzymes by concurrent tamoxifen use. We reviewed her labs today. She has had some noticeable vasomotor symptoms since initiating tamoxifen with at least three hot flashes per day. These are not yet unmanageable, but these are noticeable. 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 She has started exercising. She has not had any worsening depression or changes in mood. 1. We reviewed her CMP from today. Her transaminitis has resolved. We will continue to monitor, and she is aware that tamoxifen can certainly worsen transaminitis. 2. Hot flashes: Noticeable since initiating tamoxifen. Discussed that venlafaxine that she was previously placed on for depression is actually something that can help with hot flashes. She does not feel like she tolerated the 37.5 mg dose due to excessive fatigue and drowsiness. She was taking this in the morning. I have written down the names of black cohosh, which is an [id number] supplement which has can be useful for hot flashes. She is going to try and get this and start this. 3. If after starting black cohosh her vasomotor symptoms continue or worsen, she will notify us, and we can then try to re-initiate venlafaxine, but will try to dose this at bedtime to see if this is more tolerated. If not, we can discuss other interventions at a future visit. 4. She will return to clinic in three months for followup with her medical oncologist, Dr. Monge, and repeat labs to include CBC, CMP, and tumor markers with CA27.29. 5. She is aware to notify us for any new concerns or complaints. 6. I congratulated Talya on the start of an exercise program. I also reminded her to let us know if her mood or depression worsens as she is now no longer on venlafaxine. She agreed. MTDD
[2018-07-02 15:32] VITALS: BP 122/88
--- NOTE | 2018-08-12 10:25 | NUR ---
Pt and spouse made a walk in visit to [facility] today. Pt stated they were connected with [facility] but never did utilize their services. She wondered if now that she has a couple bills she could use their service? SW contacted [facility] and spoke with Maty who indicated the services were still available to her and to send in an invoice. [facility] emailed a copy of the paper application that was sent in along with two bills totaling about $2500.
== END 2018-08-29 ==
LOC: SPU 15:27
PROVIDERS: ATTEND Internal Medicine Hematology
DX: C50.912 Malignant neoplasm of unspecified site of left female breast (principal); Z17.0 Estrogen receptor positive status [ER+]; F17.210 Nicotine dependence, cigarettes, uncomplicated; Z78.0 Asymptomatic menopausal state; R53.1 Weakness; R53.83 Other fatigue; Z92.3 Personal history of irradiation
CPT/HCPCS: 36415; 82040; 82247; 82310; 82374; 82435; 82565; 82947; 84075; 84132; 84155; 84295; 84450; 84460; 84520; 99212

== ENCOUNTER → 2018-07-17 | Outpatient (CLI) | payer BC ==
--- NOTE | 2018-07-18 17:27 | RADIOLOGY IMAGING REPORT ---
FACILITY: [facility] [place] PATIENT NAME: PATTI TO : [id number] MR: [id number] V: [id number] EXAM DATE: [id number] ORDERING PHYSICIAN: MORENA MARCOS TECHNOLOGIST: Eneida Herndon PROCEDURE:LEFT DIGITAL MAMMOGRAM DIAGNOSTIC WITH CAD ASSISTED INTERPRETATION & 3D TOMOSYNTHESIS REASON FOR STUDY: 6 month follow up Left breast lumpectomy COMPARISON STUDIES: Mammogram 01/22/18 & 01/29/18 MAMMOGRAM VIEWS OBTAINED: Left breast CC, Left breast MLO, & Left breast exaggerated CC images were obtained. BREAST DENSITY: There are scattered areas of fibroglandular density. MAMMOGRAM FINDINGS: There are postoperative changes from a Left breast lumpectomy. There is no suspicious mass, calcification or architectural distortion. There is a clip in the Left axilla. ASSESSMENT: BIRADS 2: Benign finding. DIAGNOSTIC CATEGORY 2--BENIGN FINDING. RECOMMENDATIONS: ROUTINE YEARLY MAMMOGRAM AND CLINICAL EVALUATION. Dictated by: Moncho Jean M.D. on 07/17/2018 at 15:41 Transcribed by: KARON on 07/18/2018 at 6:55 Approved by: Moncho Jean M.D. on 07/18/2018 at 17:26 [facility]
== END ==
LOC: MAMO 14:51
PROVIDERS: ATTEND Radiology Radiation Oncology
DX: R92.2 Inconclusive mammogram (principal)
CPT/HCPCS: 77061; 77065

== ENCOUNTER → 2018-07-29 | Outpatient (CLI) | payer BC ==
--- NOTE | 2018-07-29 17:46 | RADIOLOGY IMAGING REPORT ---
FACILITY: [facility] PATIENT NAME: Talya Gillette : 1970 MR: [id number] V: [id number] EXAM DATE: ORDERING PHYSICIAN: MONIKA ECHEVARRIA TECHNOLOGIST: Location: [facility] [place] Patient: Talya Gillette : 1970 Visit/Account:[id number] Date of Sevice: 07/29/2018 Examination: CHEST PA LAT Comparison: None. History: Cough for 3 weeks. Finished radiation therapy 1 month ago. Findings: Cardiac and hilar contour size is within normal limits. No consolidation, nodule, or peribr onchial inflammation. No pneumothorax, edema, or effusion. Visualized bowel gas pattern is unremarkab le. Mild pectus excavatum. IMPRESSION: No findings of acute cardiopulmonary disease. Report Dictated By: Richard Levine MD at 07/29/2018 5:42 PM Report E-Signed By: Richard Levine MD at 07/29/2018 5:43 PM WSN:[id number]
== END ==
LOC: RAD 16:45
PROVIDERS: ATTEND Nurse Practitioner Family
DX: R05 Cough (principal); R06.02 Shortness of breath; Z51.0 Encounter for antineoplastic radiation therapy
CPT/HCPCS: 71046

== ENCOUNTER → 2018-08-19 | Outpatient (CLI) | payer BC ==
[2018-08-19 11:42] LABS: PLATELET COUNT, AUTOMATED 192 K/uL (150-450)
== END ==
LOC: LAB 11:17
PROVIDERS: ATTEND Nurse Practitioner Family
DX: Z85.3 Personal history of malignant neoplasm of breast (principal); N95.9 Unspecified menopausal and perimenopausal disorder; R06.02 Shortness of breath; R05 Cough
CPT/HCPCS: 36415; 82040; 82247; 82310; 82374; 82435; 82565; 82947; 84075; 84132; 84155; 84295; 84450; 84460; 84520; 85025

== ENCOUNTER 2018-09-16 13:15 | Outpatient (RCR) | payer BC ==
--- NOTE | 2018-08-28 16:01 | PT INITIAL EVALUATION ---
MEDICAL DIAGNOSIS: History of Breast Cancer TREATMENT DIAGNOSIS: Left Axillary Cording, History of Breast Cancer DATE OF ONSET: 02/15/18 SUBJECTIVE: Talya is a 48 year old female presenting to physical therapy following L shoulder tightness following diagnosis with breast cancer, surgical lumpectomy, and radiation. Pt had Lumpectomy on 02/15/18 with radiation following starting in March 2018 for 7 weeks. Since pt has noticed that her L shoulder is uncomfortable with reaching and lifting and is tight with overhead activities and ADL's such as shaving her armpits. Pt reports no pain at this time but that it is restricting. Pt has been participating in a group exercise program and has been working on strengthening her shoulder but the tightness remains. REHAB PROBLEM LIST: Increased Pain Decreased ROM Decreased Strength Decreased Function Decreased ADL's Decreased Mobility PREVIOUS MEDICAL HISTORY: See EMR OCCUPATION: Teacher OBJECTIVE: ROM: Shoulder ROM (L,R): flexion: 140 pn, 153, abd: 145 pn, 162, ER: 75, 78, IR: T6 level B. Strength: Shoulder MMT (L,R): flexion: B 5/5, ext: B 5/5, abd: 4+/5, 5/5, ER/IR: B 5/5. Palpation: Pt has moderate scar tissue bands palpable in the posterior aspect of the axilla with attachments down along the lateral ribs. Sensation: Pt reports occasional numbness and tingling in L arm and R face on occasion ASSESSMENT: Pt presents with signs and symptoms consistent with L axillary cording secondary to diagnosis and treatment of L breast cancer. Physical therapy is indicated for this patient to improve the above listed deficits as well as increase function with ADL's. Short Term Goals In 3 weeks pt will have full AROM without pain for improved function with ADL's. In 3 weeks pt will improve L shoulder strength as tested by MMT to equal to the R side for improved function with ADL's. Patient's Goals Improve L shoulder ROM and function with ADL's. PLAN: Patient to be seen for Manual Therapy/STM/MET Ice/Heat Range of Motion Ultrasound Stretching Neuromuscular Re-ed Posture/Body mechanics [facility]Manual T[facility] Therapeutic Activities 2x/Week for 6 Weeks If you have any questions, please contact me at . Thank you, Dariana Persaud, PT, DPT, CLT Referring Provider Signature: Date: MTDD
--- NOTE | 2018-09-19 12:05 | PT PLAN OF CARE ---
Physician: ANGELA Storey Patient is being seen: 2-3x/Week Therapist: Dariana Persaud, PT, DPT, CLT Medical Diagnosis: History of Breast Cancer Treatment Diagnosis: Left Axillary Cording, History of Breast Cancer Date of Onset: 02/15/18 Date of Initial Evaluation: 08/28/18 Date patient was last seen: 09/16/18 Number of treatments: 5 Number of cancellations/No shows: 0 INTERVENTIONS: Manual Therapy/STM/MET Ice/Heat Range of Motion Ultrasound Stretching Neuromuscular Re-ed Posture/Body mechanics Home Exercise Program Mech./Manual Traction Therapeutic Activities GOALS: In 3 weeks pt will have full AROM without pain for improved function with ADL's. In 3 weeks pt will improve L shoulder strength as tested by MMT to equal to the R side for improved function with ADL's. PATIENT'S GOAL: Improve L shoulder ROM and function with ADL's. Status of Patient's Goals: 2/2 MET Patient Compliance: Excellent Prognosis: Good Reasons for discharge from therapy: Talya is to discharge from physical therapy at this time secondary to completion of 2/2 functional goals. At the time of discharge pt showed full shoulder ROM and strength without pain. Axillary cording shows significant reductions with improved joint and lateral wall mobility. Upon discharge, pt is to maintain with stretches and HEP to address lingering adhesions with continued healing. If further symptoms arise pt is to seek further PT treatment. ROM: Shoulder ROM (L,R): flexion: 145, 153, abd: 173, 175, ER: 75, 78, IR: T6 level B. Strength: Shoulder MMT (L,R): flexion: B 5/5, ext: B 5/5, abd: 5-/5, 5/5, ER/IR: B 5/5. If you have any questions or concerns, please feel free to contact me at [phone]. Thank you, Dariana Persaud, PT, DPT, CLT CHANTELL
== END 2018-09-16 18:00 | disposition home or self-care (01) ==
LOC: PT 13:15
PROVIDERS: ATTEND Nurse Practitioner Family
DX: Z85.3 Personal history of malignant neoplasm of breast (principal)
CPT/HCPCS: 97161